=== PATIENT | female | born 1940 | race Caucasian/White ===

== ENCOUNTER 2020-11-24 22:31 | Inpatient (IN) | payer MEDICARE, BC ==
[~2020-11-24] VITALS: Ht 165.1 cm; Wt 72.0 kg
--- NOTE | 2020-11-24 22:45 | NUR ---
PT TRIPPED AND FELL AT [employer] AND HAS C/O LAC TO BACK RIGHT SIDE OF HEAD AND R HIP PAIN. PT IS ON COUMIDIN FOR PAST PE, BUT DENIED LOC. PT R LEG DIES APPEAR SHORTENED AND ROTATED OUTWARD
--- NOTE | 2020-11-24 22:53 | NUR ---
PA at bedside. Pt hooked up to fem cath.
[2020-11-24] MEDS ORDERED: SODIUM CHLORIDE FLUSH 10ML SYR IVF ONE (23:00)
[2020-11-24 23:17] LABS: BASOPHILS % (AUTO) 1 % (0-1); EOSINOPHILS % (AUTO) 2 % (1-7); LYMPHOCYTES % (AUTO) 32 % (22-44); MD NO; MEAN CORPUSCULAR HEMOGLOBIN 28.5 pg (27.0-34.8); MEAN CORPUSCULAR HGB CONC 33.7 g/dL (32.4-35.8); MEAN PLATELET VOLUME 7.8 fL (7.4-10.4); MONOCYTES % (AUTO) 8 % (2-9); NEUTROPHILS % (AUTO) 57 % (42-75); PLATELET COUNT 267 x10^3/uL (130-400); RED BLOOD COUNT 4.06 x10^6/uL (3.82-5.3); RED CELL DISTRIBUTION WIDTH 14.5 % (9.6-15.2)
[2020-11-24 23:26] LABS: ALANINE AMINOTRANSFERASE 17 U/L (12-78); ALBUMIN 3.4 g/dL (3.4-5.0); ANION GAP 6 mmol/L (5-15); CALCIUM 8.5 mg/dL (8.5-10.1); CHLORIDE 113 mmol/L (98-107); CREATININE 1.18 mg/dL (0.55-1.02)
[2020-11-24 23:29] LABS: ALKALINE PHOSPHATASE 67 U/L (45-117); BILIRUBIN,TOTAL 0.2 mg/dL (0.2-1.0); INTERNATIONAL NORMALIZED RATIO 1.38 (0.93-1.1); PROTHROMBIN TIME 14.7 Seconds (9.6-11.5); TOTAL PROTEIN 6.9 g/dL (6.4-8.2)
--- NOTE | 2020-11-25 | NUR ---
Pt to imaging.
--- NOTE | 2020-11-25 00:32 | NUR ---
Irrigated pt's head wound. Provided warm blankets.
--- NOTE | 2020-11-25 00:52 | NUR ---
Pt to XR
--- NOTE | 2020-11-25 01:56 | NUR ---
Dr. Fajardo at bedside.
--- NOTE | 2020-11-25 02:17 | NUR ---
BRITTNI swabbed and walked to lab.
--- NOTE | 2020-11-25 02:26 | NUR ---
EKG being done.
--- NOTE | 2020-11-25 02:27 | NUR ---
Pt rehooked up to fem cath (was unhooked to go to XR), repeats she does not want anything for pain.
[2020-11-25] MEDS ORDERED: LIDOCAINE-MPF 1%, 5ML ONE (02:53)
--- NOTE | 2020-11-25 02:59 | NUR ---
RECEIVED BS REPORT FROM BRITTNEE MCGRAW TO ASSUME CARE OF PT. AT THIS TIME. PT. RESTING ON GURNEY WITH NO DISTRESS NOTED. AWAITING BED ASSIGNMENT UPSTAIRS. ALL SAFETY MEASUERS OBSERVED.
--- NOTE | 2020-11-25 03:13 | NUR ---
Report called to Brian.
[2020-11-25] MEDS ORDERED: NEOSPORIN OINT. PKT 1 PACKET ONE (03:16)
[2020-11-25 03:46] VITALS: BP 147/80
[2020-11-25] MEDS ORDERED: morphine SULFATE 10 MG/ML, 1ML IVPush PRN (05:00)
[2020-11-25] MEDS ORDERED: ACETAMINOPHEN 325 MG TABLET PO PRN ×2 (05:00→12:00)
[2020-11-25] MEDS ORDERED: SIMV20TA19 PO (06:03)
[2020-11-25] MEDS ORDERED: vit b 12 PO (06:03)
[2020-11-25] MEDS ORDERED: vit d3 PO (06:03)
[2020-11-25] MEDS ORDERED: WARF6TAB47 PO (06:03)
[2020-11-25] MEDS ORDERED: LEVO75TA5 PO (06:03)
[2020-11-25] MEDS ORDERED: LOSA25TA25 PO (06:03)
[2020-11-25] MEDS ORDERED: stool PO (06:03)
[2020-11-25] MEDS ORDERED: WARF-36 PO (06:03)
[2020-11-25 06:16] LABS: INTERNATIONAL NORMALIZED RATIO 1.35 (0.93-1.1); PROTHROMBIN TIME 14.4 Seconds (9.6-11.5)
[2020-11-25 07:25] VITALS: BP 143/88
[2020-11-25] MEDS ORDERED: CHLORHEXIDINE 15 ML UDC ONE (10:06)
[2020-11-25] MEDS ORDERED: CHLORHEXIDINE 15 ML UDC MM ONE (10:30)
[2020-11-25] MEDS ORDERED: FENTANYL PF 250 MCG/5ML ONE (10:37)
[2020-11-25] MEDS ORDERED: FENTANYL PF 100 MCG/2ML ONE ×4 (10:55→12:37)
[2020-11-25] MEDS ORDERED: VANCOMYCIN 1,000 MG ONE (11:05)
[2020-11-25] MEDS ORDERED: TRANEXAMIC ACID 100 MG/ML, 10ML ONE (11:05)
[2020-11-25] MEDS ORDERED: PROPOFOL 10 MG/ML, 20ML ONE (11:44)
[2020-11-25] MEDS ORDERED: DEXAMETHASONE 4 MG/ML, 1ML ONE (11:44)
[2020-11-25] MEDS ORDERED: ONDANSETRON 2MG/ML, 2ML ONE (11:44)
[2020-11-25] MEDS ORDERED: SUCCINYLCHOLINE 20 MG/ML, 10ML ONE (11:44)
[2020-11-25] MEDS ORDERED: OXYcodone 5 MG/5 ML ORAL.SOL UDC PO PRN (12:00)
[2020-11-25] MEDS ORDERED: hydrALAzine 20 MG/ML, 1ML IV PRN (12:00)
[2020-11-25] MEDS ORDERED: METOPROLOL 1 MG/ML, 5ML IV PRN (12:00)
[2020-11-25] MEDS ORDERED: HYDROmorphone 1 MG/ML, 1ML INJ IVPush PRN (12:00)
[2020-11-25] MEDS ORDERED: ONDANSETRON 2MG/ML, 2ML IVPush PRN (12:00)
[2020-11-25] MEDS: FENTANYL PF 100 MCG/2ML IV PRN ×3 (12:40→13:01)
[2020-11-25] MEDS ORDERED: LABETALOL 5MG/ML, 20ML ONE (12:48)
[2020-11-25] MEDS: LABETALOL 5MG/ML, 20ML IV PRN ×2 (12:49→13:04)
[2020-11-25] MEDS ORDERED: KETOROLAC 30 MG/1 ML ONE (13:09)
[2020-11-25] MEDS ORDERED: KETOROLAC 30 MG/1 ML IVPush ONE ×2 (13:30)
[2020-11-25 13:50] VITALS: BP 138/77
[2020-11-25] MEDS ORDERED: ONDANSETRON 2MG/ML, 2ML IV PRN (15:00)
[2020-11-25] MEDS ORDERED: HYDROcodone/APAP 5/325 TABLET PO PRN (15:00)
[2020-11-25] MEDS: POTASSIUM CHLORIDE 10 MEQ in D5%-0.45% NACL 1,000 ML IV SCH (16:49)
[2020-11-25] MEDS: WARFARIN 3 MG TABLET PO-COUM SCH (17:46)
[2020-11-25] MEDS ORDERED: WARFARIN 3 MG TABLET PO-COUM SCH ×2 (18:00)
[2020-11-25 18:43] VITALS: BP 116/70
[2020-11-25] MEDS: CEFAZOLIN PMX 1GM/50ML 50 ML IVPB SCH (19:44)
[2020-11-25] MEDS: KETOROLAC 30 MG/1 ML IV SCH (20:53)
[2020-11-25] MEDS: SIMVASTATIN 20 MG TABLET PO SCH (20:53)
[2020-11-25] MEDS ORDERED: VANCOMYCIN PMX 1GM/200ML 200 ML IVPB ONE (22:30)
[2020-11-25 23:32] VITALS: BP 108/68
[2020-11-26 02:59] VITALS: BP 130/79
[2020-11-26] MEDS: CEFAZOLIN PMX 1GM/50ML 50 ML IVPB SCH (03:43)
[2020-11-26 04:31] LABS: BASOPHILS % (AUTO) 0 % (0-1); EOSINOPHILS % (AUTO) 0 % (1-7); LYMPHOCYTES % (AUTO) 25 % (22-44); MEAN CORPUSCULAR HEMOGLOBIN 29.1 pg (27.0-34.8); MEAN CORPUSCULAR HGB CONC 33.7 g/dL (32.4-35.8); MEAN PLATELET VOLUME 8.2 fL (7.4-10.4); MONOCYTES % (AUTO) 13 % (2-9); NEUTROPHILS % (AUTO) 62 % (42-75); PLATELET COUNT 223 x10^3/uL (130-400); RED BLOOD COUNT 3.14 x10^6/uL (3.82-5.3); RED CELL DISTRIBUTION WIDTH 14.7 % (9.6-15.2)
[2020-11-26 04:34] LABS: MD NO
[2020-11-26 04:44] LABS: ANION GAP 4 mmol/L (5-15); CHLORIDE 110 mmol/L (98-107); CREATININE 0.89 mg/dL (0.55-1.02)
[2020-11-26] MEDS: KETOROLAC 30 MG/1 ML IV SCH ×2 (05:55→13:39)
[2020-11-26] MEDS: LEVOTHYROXINE 75 MCG TABLET PO SCH (05:55)
[2020-11-26 07:50] VITALS: BP 130/75
[2020-11-26] MEDS: SENNA/DOCUSATE TABLET PO SCH (08:50)
[2020-11-26] MEDS: LOSARTAN 25MG TABLET PO SCH (08:50)
[2020-11-26] MEDS: CYANOCOBALAMIN 1,000 MCG TABLET PO SCH (08:50)
[2020-11-26] MEDS: CHOLECALCIFEROL 1,000 UNIT TABLET PO SCH (08:50)
[2020-11-26] MEDS: POTASSIUM CHLORIDE 10 MEQ in D5%-0.45% NACL 1,000 ML IV SCH (11:45)
[2020-11-26 14:15] VITALS: BP 116/54
[2020-11-26 18:11] LABS: INTERNATIONAL NORMALIZED RATIO 1.6 (0.93-1.1)
[2020-11-26] MEDS: WARFARIN 3 MG TABLET PO-COUM SCH (18:15)
[2020-11-26 19:28] VITALS: BP 136/73
[2020-11-26] MEDS: SIMVASTATIN 20 MG TABLET PO SCH (20:06)
[2020-11-26] MEDS: ACETAMINOPHEN 325 MG TABLET PO PRN (22:11)
[2020-11-27 02:22] VITALS: BP 126/74
[2020-11-27] MEDS: LEVOTHYROXINE 75 MCG TABLET PO SCH (05:06)
[2020-11-27 05:32] LABS: BASOPHILS % (AUTO) 1 % (0-1); EOSINOPHILS % (AUTO) 3 % (1-7); LYMPHOCYTES % (AUTO) 30 % (22-44); MEAN CORPUSCULAR HEMOGLOBIN 29.4 pg (27.0-34.8); MEAN CORPUSCULAR HGB CONC 33.8 g/dL (32.4-35.8); MEAN PLATELET VOLUME 7.9 fL (7.4-10.4); MONOCYTES % (AUTO) 11 % (2-9); NEUTROPHILS % (AUTO) 55 % (42-75); PLATELET COUNT 237 x10^3/uL (130-400); RED BLOOD COUNT 3.17 x10^6/uL (3.82-5.3); RED CELL DISTRIBUTION WIDTH 14.9 % (9.6-15.2)
[2020-11-27 05:35] LABS: MD NO
[2020-11-27 05:43] LABS: INTERNATIONAL NORMALIZED RATIO 1.56 (0.93-1.1); PROTHROMBIN TIME 16.5 Seconds (9.6-11.5)
[2020-11-27 05:47] LABS: ANION GAP 6 mmol/L (5-15); CALCIUM 7.9 mg/dL (8.5-10.1); CHLORIDE 112 mmol/L (98-107); CREATININE 0.85 mg/dL (0.55-1.02)
[2020-11-27 07:25] VITALS: BP 135/74
[2020-11-27] MEDS: POTASSIUM CHLORIDE 10 MEQ in D5%-0.45% NACL 1,000 ML IV SCH (08:00)
[2020-11-27] MEDS: CHOLECALCIFEROL 1,000 UNIT TABLET PO SCH (08:38)
[2020-11-27] MEDS: METHOCARBAMOL 500 MG TABLET PO PRN ×2 (08:38→18:02)
[2020-11-27] MEDS: SENNA/DOCUSATE TABLET PO SCH (08:38)
[2020-11-27] MEDS: LOSARTAN 25MG TABLET PO SCH (08:38)
[2020-11-27] MEDS: CYANOCOBALAMIN 1,000 MCG TABLET PO SCH (08:39)
[2020-11-27] MEDS: ACETAMINOPHEN 325 MG TABLET PO PRN ×2 (13:07→19:48)
[2020-11-27 13:37] VITALS: BP 124/76
[2020-11-27] MEDS: WARFARIN 3 MG TABLET PO-COUM SCH (18:01)
[2020-11-27 19:05] VITALS: BP 123/79
[2020-11-27] MEDS: SIMVASTATIN 20 MG TABLET PO SCH (19:48)
[2020-11-28 00:50] VITALS: BP 156/70
[2020-11-28] MEDS: POTASSIUM CHLORIDE 10 MEQ in D5%-0.45% NACL 1,000 ML IV SCH (04:06)
[2020-11-28] MEDS: LEVOTHYROXINE 75 MCG TABLET PO SCH (05:47)
[2020-11-28] MEDS: METHOCARBAMOL 500 MG TABLET PO PRN ×2 (05:47→15:38)
[2020-11-28] MEDS: ACETAMINOPHEN 325 MG TABLET PO PRN ×2 (05:47→15:39)
[2020-11-28 06:15] LABS: BASOPHILS % (AUTO) 1 % (0-1); EOSINOPHILS % (AUTO) 5 % (1-7); LYMPHOCYTES % (AUTO) 29 % (22-44); MEAN CORPUSCULAR HEMOGLOBIN 29.3 pg (27.0-34.8); MEAN CORPUSCULAR HGB CONC 33.8 g/dL (32.4-35.8); MEAN PLATELET VOLUME 7.7 fL (7.4-10.4); MONOCYTES % (AUTO) 11 % (2-9); NEUTROPHILS % (AUTO) 54 % (42-75); PLATELET COUNT 254 x10^3/uL (130-400); RED BLOOD COUNT 3.08 x10^6/uL (3.82-5.3); RED CELL DISTRIBUTION WIDTH 14.1 % (9.6-15.2)
[2020-11-28 06:17] LABS: MD NO
[2020-11-28 06:28] LABS: INTERNATIONAL NORMALIZED RATIO 1.79 (0.93-1.1); PROTHROMBIN TIME 18.9 Seconds (9.6-11.5)
[2020-11-28] MEDS: SENNA/DOCUSATE TABLET PO SCH (07:56)
[2020-11-28] MEDS: LOSARTAN 25MG TABLET PO SCH (07:56)
[2020-11-28] MEDS: CYANOCOBALAMIN 1,000 MCG TABLET PO SCH (07:58)
[2020-11-28] MEDS: CHOLECALCIFEROL 1,000 UNIT TABLET PO SCH (07:58)
[2020-11-28 09:14] VITALS: BP 113/67
[2020-11-28] MEDS ORDERED: HYDR-1067 PO ×2 (11:43)
[2020-11-28] MEDS ORDERED: TRAM50TA2 PO (11:59)
[2020-11-28 15:23] VITALS: BP 145/81
[2020-12-01] MEDS ORDERED: WARFARIN 5 MG TABLET PO-COUM SCH (18:00)
== END 2020-11-28 16:50 | disposition home or self-care (01) | DRG 480 ==
LOC: ED 23:05 → EDIP 11-25 02:15 → 3N 11-25 03:35 → 4NE 11-25 13:01 → DCLOUNGE 11-28 16:40
PROVIDERS: ADMIT Family Medicine; ATTEND Internal Medicine
PROC: 0QH736Z Insertion of Intramedullary Internal Fixation Device into Left Upper Femur, Percutaneous Approach (ICD-10-PCS; principal; 2020-11-25 10:30)
DX: S72.141A Displaced intertrochanteric fracture of right femur, initial encounter for closed fracture (principal); N17.0 Acute kidney failure with tubular necrosis; S06.0X9A Concussion with loss of consciousness of unspecified duration, initial encounter; D68.59 Other primary thrombophilia; D64.9 Anemia, unspecified; Z20.822 Contact with and (suspected) exposure to COVID-19; E03.9 Hypothyroidism, unspecified; E78.5 Hyperlipidemia, unspecified; I10 Essential (primary) hypertension; M16.10 Unilateral primary osteoarthritis, unspecified hip; S01.01XA Laceration without foreign body of scalp, initial encounter; W01.0XXA Fall on same level from slipping, tripping and stumbling without subsequent striking against object, initial encounter; W45.0XXA Nail entering through skin, initial encounter; Z79.01 Long term (current) use of anticoagulants; Z86.711 Personal history of pulmonary embolism; Z86.79 Personal history of other diseases of the circulatory system; Z79.899 Other long term (current) drug therapy; Z79.891 Long term (current) use of opiate analgesic; Z88.5 Allergy status to narcotic agent; Z84.89 Family history of other specified conditions
CPT/HCPCS: 36415; 70450; 72125; 72170; 76000; 80048; 80053; 85025; 85610; 87635; 93005; 99285; C1713; G0378; J0690; J1100; J1885; J2405; J2704; J3010; J3370; J3480; J0330